=== PATIENT | male | born 1970 | race Caucasian/White ===

== ENCOUNTER 2016-08-26 17:05 | Emergency (ER) | payer SELFPAY ==
[~2016-08-26] VITALS: Ht 180.3 cm; Wt 61.4 kg
[~2016-08-26 17:05] MED LIST: DILANTIN100 MG PO; HCTZ 25MG25 MG PO; LEVOTHYROXINE0.1 MG PO
[2016-08-26 17:06] VITALS: TEMP 98.6
[2016-08-26 17:58] LABS: BASO # 0.1 (0.0-0.2); BASO % 0.7 % (0.0-2.0); EOS # 0.2 (0.0-0.7); EOS % 1.5 % (0-4.0); GRAN # 5.2 (1.4-6.5); GRAN % 52.8 % (42.2-75.2); HEMOGLOBIN 16.7 g/dl (13.5-18.0); LYMPH # 3.8 (1.2-3.4); LYMPH % 38.3 % (20.0-51.0); MEAN CELL VOLUME 99 fl (80.0-100.0); MEAN CORPUSCULAR HEMOGLOBIN 34 pg (27.0-31.0); MEAN CORPUSCULAR HGB CONC 35 g/dl (33.0-37.0); MEAN PLATELET VOLUME 11.2 fl (7.4-10.4); MONO # 0.6 (0.1-0.6); MONO % 6.5 % (1.7-9.3); PLATELET COUNT 202 K/mm3 (130-400); RED BLOOD COUNT 4.86 M/mm3 (4.20-5.60); REDCELL DISTRIBUTION WIDTH-CV 14.2 % (11.5-14.5); WHITE BLOOD COUNT 9.8 K/mm3 (4.8-10.8)
[2016-08-26 18:08] LABS: ADJUSTED CALCIUM 8.2 mg/dL (8.4-10.2); ALANINE AMINOTRANSFERASE 50 U/L (21-72); ALBUMIN 4.8 gm/dL (3.5-5.0); ALKALINE PHOSPHATASE 96 U/L (50-136); ANION GAP 17 mmol/L (7-16); BILIRUBIN,TOTAL 0.8 mg/dL (0.0-1.0); BLOOD UREA NITROGEN 11 mg/dL (9-20); CALCIUM 8.8 mg/dL (8.4-10.2); CARBON DIOXIDE 22 mmol/L (22-30); CHLORIDE 103 mmol/L (98-107); CREATINE KINASE 134 U/L (55-170); CREATININE, serum 0.88 mg/dL (0.66-1.25); GLUCOSE 74 mg/dL (74-106); POTASSIUM 4.2 mmol/L (3.4-5.0); SODIUM 142 mmol/L (137-145)
[2016-08-26 18:20] LABS: TROPONIN-I < 0.012 ng/mL (0.000-0.034)
[2016-08-26] MEDS ORDERED: ZOFRAN ODT4 MG PO (20:21)
[2016-08-26] MEDS ORDERED: ANTIVERT 25MG25 MG PO (20:21)
[2016-08-26 20:34] VITALS: BP 140/99; PULSE 96
== END 2016-08-26 20:35 | disposition home or self-care (01) ==
LOC: COL.ER 17:05
PROVIDERS: Emergency Medicine
DX: R55 Syncope and collapse (principal); R42 Dizziness and giddiness; F17.210 Nicotine dependence, cigarettes, uncomplicated
CPT/HCPCS: J7030

== ENCOUNTER 2023-07-05 13:30 | Emergency (ER) | payer SELFPAY ==
[~2023-07-05] VITALS: Ht 180.3 cm; Wt 67.3 kg
[~2023-07-05 13:30] MED LIST changes: +ANTIVERT 25MG25 MG PO; +ZOFRAN ODT4 MG PO
[2023-07-05 13:32] VITALS: TEMP 98.4
[2023-07-05] MEDS ORDERED: LR 1,000 ML IV ONE (13:45)
[2023-07-05 13:57] LABS: BASO % 0.3 % (0.0-2.0); EOS # 0.1 K/mm3 (0.0-0.7); EOS % 1.5 % (0.0-4.0); GRAN # 3.6 K/mm3 (1.4-6.5); GRAN % 60.9 % (42.2-75.2); HEMATOCRIT 38.5 % (42.0-52.0); HEMOGLOBIN 13.1 g/dl (13.5-18.0); LYMPH # 1.4 K/mm3 (1.2-3.4); LYMPH % 23.1 % (20.0-51.0); MEAN CELL VOLUME 103 fl (80.0-100.0); MEAN CORPUSCULAR HEMOGLOBIN 35 pg (27-31); MEAN CORPUSCULAR HGB CONC 34 g/dl (33.0-37.0); MEAN PLATELET VOLUME 12.3 fl (7.4-10.4); MONO # 0.8 K/mm3 (0.1-0.6); MONO % 13.9 % (1.7-9.3); PLATELET COUNT 98 K/mm3 (130-400); RED BLOOD COUNT 3.74 M/mm3 (4.20-5.60); REDCELL DISTRIBUTION WIDTH-CV 13.2 % (11.5-14.5)
[2023-07-05 14:18] LABS: ALANINE AMINOTRANSFERASE 70 U/L (0-55); ALKALINE PHOSPHATASE 82 U/L (40-150); ANION GAP 18 mmol/L (7-16); AST,SGOT 72 U/L (5-34); BILIRUBIN,TOTAL 0.5 mg/dL (0.2-1.2); BLOOD UREA NITROGEN 11 mg/dL (8-26); CALCIUM 9.8 mg/dL (8.4-10.2); CHLORIDE 97 mmol/L (98-107); CREATININE, serum 0.83 mg/dL (0.72-1.25); GLUCOSE 157 mg/dL (70-99); POTASSIUM 3.8 mmol/L (3.5-4.5); SODIUM 137 mmol/L (136-145); TOTAL PROTEIN 7.1 gm/dL (6.2-8.1)
[2023-07-05 14:27] LABS: TROPONIN-I < 0.010 ng/mL (0.00-0.033)
[2023-07-05 15:56] LABS: COLLECTION METHOD CLEAN CATCH
[2023-07-05] MEDS ORDERED: KEPPRA 500MG500 MG PO (15:56)
[2023-07-05 16:09] LABS: PH 7.5 (5.0-8.5); URINE APPEARANCE CLEAR (CLEAR/HAZY); URINE BLOOD NEGATIVE (NEGATIVE); URINE COLOR YELLOW (YELLOW); URINE GLUCOSE NEGATIVE (NEGATIVE); URINE KETONE 2+ (NEGATIVE); URINE NITRATE NEGATIVE (NEGATIVE); URINE PROTEIN(semi-quant) TRACE (NEGATIVE); URINE UROBILINOGEN 0.2 E.U/dL (0.2-1.0)
[2023-07-05 16:15] VITALS: BP 134/90; PULSE 98
== END 2023-07-05 16:28 | disposition home or self-care (01) ==
LOC: COL.ER 13:30
PROVIDERS: Emergency Medicine
DX: R56.9 Unspecified convulsions (principal); R74.01 Elevation of levels of liver transaminase levels; I63.81 Other cerebral infarction due to occlusion or stenosis of small artery; D64.9 Anemia, unspecified; R74.02 Elevation of levels of lactic acid dehydrogenase [LDH]; R00.0 Tachycardia, unspecified; F17.210 Nicotine dependence, cigarettes, uncomplicated; Z86.73 Personal history of transient ischemic attack (TIA), and cerebral infarction without residual deficits
CPT/HCPCS: J7120

== ENCOUNTER 2024-02-10 21:17 | Emergency (ER) | payer SELFPAY ==
[~2024-02-10] VITALS: Ht 177.8 cm; Wt 72.7 kg
[~2024-02-10 21:17] MED LIST changes: +KEPPRA 500MG500 MG PO
[2024-02-10 21:20] VITALS: TEMP 98.7
[2024-02-10] MEDS ORDERED: levETIRAcetam 500 MG TAB PO ONE (21:30)
[2024-02-10] MEDS ORDERED: LR 1,000 ML IV ONE ×2 (21:30→22:00)
[2024-02-10 21:32] LABS: HEMOGLOBIN 13.1 g/dl (13.5-18.0); MEAN CELL VOLUME 99 fl (80.0-100.0); MEAN CORPUSCULAR HEMOGLOBIN 34 pg (27-31); MEAN CORPUSCULAR HGB CONC 35 g/dl (33.0-37.0); MEAN PLATELET VOLUME 12.2 fl (7.4-10.4); PLATELET COUNT 63 K/mm3 (130-400); RED BLOOD COUNT 3.83 M/mm3 (4.20-5.60); REDCELL DISTRIBUTION WIDTH-CV 15.6 % (11.5-14.5)
[2024-02-10 21:46] LABS: CALCIUM 9.1 mg/dL (8.4-10.2); CREATININE, serum 0.8 mg/dL (0.72-1.25); POTASSIUM 3.8 mEq/L (3.5-4.5)
[2024-02-10 23:41] LABS: COLLECTION METHOD CLEAN CATCH
[2024-02-11] MEDS ORDERED: KEPPRA 500MG500 MG PO (00:05)
[2024-02-11] MEDS ORDERED: levETIRAcetam 500 MG TAB PO ONE (00:15)
[2024-02-11 00:37] LABS: URINE APPEARANCE CLEAR (CLEAR/HAZY); URINE BLOOD NEGATIVE (NEGATIVE); URINE COLOR YELLOW (YELLOW); URINE GLUCOSE NEGATIVE (NEGATIVE); URINE KETONE 2+ (NEGATIVE); URINE NITRATE NEGATIVE (NEGATIVE); URINE PROTEIN(semi-quant) NEGATIVE (NEGATIVE); URINE UROBILINOGEN 0.2 E.U/dL (0.2-1.0)
[2024-02-11 01:15] VITALS: BP 139/103; PULSE 120
== END 2024-02-11 01:15 | disposition home or self-care (01) ==
LOC: COL.ER 21:17
PROVIDERS: Emergency Medicine
DX: E86.0 Dehydration (principal); G40.909 Epilepsy, unspecified, not intractable, without status epilepticus; F17.200 Nicotine dependence, unspecified, uncomplicated
CPT/HCPCS: J7120